=== PATIENT | male | born 1980 | race American Indian/Alaskan Native ===

== ENCOUNTER 2016-07-17 10:36 | Emergency (ER) | payer OTHER ==
[2016-07-17 12:31] VITALS: BP 110/68
--- NOTE | 2016-07-17 13:16 | Emergency Department Report ---
HPI - General Chief Complaint: Eye Problems Time Seen by Provider: 07/17/16 12:48 - HPI HPI: 36-year-old male presents today with bilateral eye erythema 2 days. Patient states that his eyes feel dry with itching and burning sensation. Denies pain but calls it more of a nuisance. Denies drainage or change in vision. Patient also complaining of penile discharge. He states that he was seen by urgent care in [place] who treated him For gonorrhea and chlamydia and prescribed him Bactrim. Patient states he has not finished his antibiotic course. Reports some symptomatic relief but states that he still has some discharge. Denies rash, dysuria, increased urinary frequency or urgency. Denies fever, chills, nausea, vomiting, chest pain, shortness of breath, abdominal pain. ED Past Medical Hx - Past Medical History Previous Medical History?: No - Surgical History Past Surgical History?: No - Social History Smoking Status: Never Smoker Substance Use Type: None - Medications Home Medications: Home Medications Medication Instructions Recorded Confirmed Last Taken Type Erythromycin [Erythromycin Ophth 1 applic OP TID #1 tube 07/17/16 Unknown Rx Oint] Naphazoline HCl/Pheniramine 1 - 2 drops OP TID #1 bottle 07/17/16 Unknown Rx [Naphcon-A Eye Drops] ED Review of Systems ROS: Stated complaint: EYES BURNING Other details as noted in HPI Constitutional: denies: chills, fever, malaise Eyes: other (eye erythema and irritation). denies: eye pain, eye discharge, vision change ENT: denies: ear pain, throat pain, congestion Respiratory: denies: cough, shortness of breath, wheezing Cardiovascular: denies: chest pain, palpitations Endocrine: no symptoms reported Gastrointestinal: denies: abdominal pain, nausea, vomiting Genitourinary: discharge. denies: urgency, dysuria, frequency, hematuria, testicular pain, testicular mass Skin: denies: rash Neurological: denies: headache, weakness Physical Exam - Physical Exam Vital Signs: Vital Signs 07/17/16 07/17/16 07/17/16 11:14 12:26 12:27 Temperature 98.0 F 98.8 F Pulse Rate 81 80 Respiratory 18 12 12 Rate Blood Pressure 149/88 Blood Pressure 110/68 [Right] O2 Sat by Pulse 100 99 Oximetry Physical Exam: GENERAL: The patient is well-developed and well-nourished. Patient is in NAD. HEAD: Normocephalic. Atraumatic. EYES: Extraocular motions are intact, PERRL. Conjunctival injection noted bilaterally. No drainage or bleeding noted. No abrasions noted. EARS: External auditory canals and tympanic membranes clear; hearing grossly intact. NOSE: Normal nasal mucosa with no nasal discharge. THROAT: No erythema, swelling or exudates. NECK: Supple, nontender, without lymphadenopathy. CHEST/LUNGS: Clear to auscultation throughout. HEART/CARDIOVASCULAR: Regular rate and rhythm. No murmurs, rubs or gallops. ABDOMEN: Abdomen is soft, nontender. No guarding or rebound tenderness. Negative for CVA tenderness bilaterally. ED Course Vital Signs 07/17/16 07/17/16 07/17/16 11:14 12:26 12:27 Temperature 98.0 F 98.8 F Pulse Rate 81 80 Respiratory 18 12 12 Rate Blood Pressure 149/88 Blood Pressure 110/68 [Right] O2 Sat by Pulse 100 99 Oximetry ED Medical Decision Making - Lab Data Vital Signs 07/17/16 07/17/16 07/17/16 11:14 12:26 12:27 Temperature 98.0 F 98.8 F Pulse Rate 81 80 Respiratory 18 12 12 Rate Blood Pressure 149/88 Blood Pressure 110/68 [Right] O2 Sat by Pulse 100 99 Oximetry - Medical Decision Making 36-year-old male presents today with bilateral conjunctivitis and persistent penile discharge. Patient is recommended to complete his antibiotic course and follow up with primary care provider. Patient is in no acute distress at this time. He will be discharged home and is encouraged to follow up with a primary care provider. He will be sent home on Naphcon and erythromycin ophthalmic ointment and is encouraged to return to the emergency room for any worsening symptoms. Critical care attestation.: If time is entered above; I have spent that time in minutes in the direct care of this critically ill patient, excluding procedure time. ED Disposition Clinical Impression: Penile discharge Allergic conjunctivitis Qualifiers: Laterality: bilateral Qualified Code(s): H10.13 - Acute atopic conjunctivitis, bilateral Disposition: DISCHARGED TO HOME OR SELFCARE Is pt being admited?: No Does the pt Need Aspirin: No Condition: Stable Instructions: Conjunctivitis (ED) Additional Instructions: Follow-up with primary care provider. Return to the emergency department if symptoms worsen. Prescriptions: Erythromycin [Erythromycin Ophth Oint] 1 applic OP TID #1 tube Naphazoline HCl/Pheniramine [Naphcon-A Eye Drops] 1 - 2 drops OP TID #1 bottle Referrals: PRIMARY CAREMD [Primary Care Provider] - 3-5 Days ANGELIQUE LANDIS MD [Staff Physician] - 3-5 Days [facility] [Outside] - 3-5 Days Forms: Work/School Release Form(ED) Time of Disposition: 13:17
== END 2016-07-17 13:18 | disposition home or self-care (01) ==
LOC: ED 10:36
DX: H10.13 Acute atopic conjunctivitis, bilateral (principal); R36.9 Urethral discharge, unspecified
CPT/HCPCS: 99282